=== PATIENT | female | born 1995 | race Caucasian/White ===

== ENCOUNTER 2018-05-23 18:09 | Emergency (ER) | payer SELFPAY ==
--- NOTE | 2018-05-23 18:59 | Emergency Department Report ---
ED Headache HPI - General Chief Complaint: Headache Stated Complaint: HEADACHE/DIZZY/PASSING OUT Time Seen by Provider: 05/23/18 18:39 - History of Present Illness Initial Comments: 22-year-old obese female with past medical history of hypertension, currently treated with medications, presented emergency department complaining of continued headache and nasal congestion. Patient was due to with neurology for she says that she believes is a tumor found on the CAT scan that she received on April 29.. States he is unable to get an appointment because they are not answering the phone she's been having some issues with feeling lightheaded from time to time. This, dull and throbbing headache pain and sinus pressure. CT s can was obtained on April 29, showing air-fluid level in the sphenoid sinuses. She reports no fever, sweats, chest pain, palpitations, nausea, vomiting, but has been having some presyncope Quality: mild Head Injury Location: parietal Recent Head Trauma: no recent headache/trauma, frequent headaches Associated Symptoms: nasal congestion, weakness. denies: fatigue, facial pain, flushing, loss of consciousness, nausea/vomiting, nasal drainage, rash, sinus infection, stiff neck, vision changes Allergies/Adverse Reactions: Allergies acetaminophen [From Fioricet] Adverse Reaction (Intermediate, Verified 05/13/18 17:51) Vomiting butalbital [From Fioricet] Adverse Reaction (Intermediate, Verified 05/13/18 17:51) Vomiting caffeine [From Fioricet] Adverse Reaction (Intermediate, Verified 05/13/18 17:51) Vomiting Home Medications: Ambulatory Orders hydroCHLOROthiazide [HCTZ] 25 mg PO QDAY 30 Days #30 tablet 04/29/18 amLODIPine [Norvasc] 10 mg PO DAILY #30 tab 05/04/18 Butalb/Acetaminophen/Caffeine [Fioricet 50-300-40 mg CAP] 1 cap PO Q6HR PRN #20 cap 05/23/18 ED Review of Systems ROS: Stated complaint: HEADACHE/DIZZY/PASSING OUT Other details as noted in HPI Comment: All other systems reviewed and negative Constitutional: denies: chills, fever Eyes: denies: eye pain, eye discharge, vision change ENT: denies: ear pain, throat pain Respiratory: denies: cough, shortness of breath, wheezing Cardiovascular: denies: chest pain, palpitations Endocrine: no symptoms reported Gastrointestinal: denies: abdominal pain, nausea, diarrhea Genitourinary: denies: urgency, dysuria, discharge Musculoskeletal: denies: back pain, joint swelling, arthralgia Skin: denies: rash, lesions Neurological: headache, weakness. denies: paresthesias, confusion, abnormal gait, vertigo Psychiatric: denies: anxiety, depression, auditory hallucinations, visual hallucinations, suicidal thoughts Hematological/Lymphatic: denies: easy bleeding, easy bruising ED Past Medical Hx - Past Medical History Previous Medical History?: Yes Hx Hypertension: Yes Hx Asthma: Yes - Surgical History Past Surgical History?: No - Social History Smoking Status: Never Smoker Substance Use Type: None - Medications Home Medications: Home Medications Medication Instructions Recorded Confirmed Last Taken Type hydroCHLOROthiazide [HCTZ] 25 mg PO QDAY 30 Days #30 tablet 04/29/18 05/13/18 05/13/18 Rx amLODIPine [Norvasc] 10 mg PO DAILY #30 tab 05/04/18 05/13/18 05/13/18 Rx Butalb/Acetaminophen/Caffeine 1 cap PO Q6HR PRN #20 cap 05/23/18 Unknown Rx [Fioricet 50-300-40 mg CAP] ED Physical Exam - General Limitations: No Limitations General appearance: alert, in no apparent distress - Head Head exam: Present: atraumatic, normocephalic - Eye Eye exam: Present: normal appearance, PERRL, EOMI, other (negative funduscopic examination ) Pupils: Present: normal accommodation - ENT ENT exam: Present: mucous membranes moist - Neck Neck exam: Present: normal inspection, full ROM - Respiratory Respiratory exam: Present: normal lung sounds bilaterally. Absent: respiratory distress - Cardiovascular Cardiovascular Exam: Present: regular rate, normal rhythm. Absent: systolic murmur, diastolic murmur, rubs, gallop - GI/Abdominal GI/Abdominal exam: Present: soft, normal bowel sounds. Absent: distended, tenderness, hyperactive bowel sounds, hypoactive bowel sounds - Extremities Exam Extremities exam: Present: normal inspection, full ROM, normal capillary refill. Absent: pedal edema, joint swelling - Back Exam Back exam: Present: normal inspection. Absent: CVA tenderness (R), CVA tenderness (L) - Neurological Exam Neurological exam: Present: alert, oriented X3, CN II-XII intact, normal gait, reflexes normal. Absent: abnormal gait, motor sensory deficit - Psychiatric Psychiatric exam: Present: normal affect, normal mood. Absent: anxious, flat affect - Skin Skin exam: Present: warm, dry, intact, normal color. Absent: rash, cyanosis, diaphoretic, erythema, urticaria ED Course Vital Signs 05/23/18 05/23/18 05/23/18 18:24 19:30 21:01 Temperature 98.7 F Pulse Rate 109 H 114 H 100 H Respiratory 16 15 Rate Blood Pressure 166/120 Blood Pressure 166/114 150/104 [Right] O2 Sat by Pulse 98 100 Oximetry ED Medical Decision Making - Lab Data Result diagrams: 05/23/18 19:01 05/23/18 19:01 - Medical Decision Making Discussed medication compliance and hypertension with the patient in great detail her past problems of following up with primary care provider for definitive management of her current issues. Also advised on appropriate medication use and completion. She is aware of the findings of the exam today and does state understanding. She will follow up. She also understands when to return to the emergency department. We also reviewed the CAT scan findings from April 29 in great detail of the air-fluid level that was related to her sinuses. She thought that meant that she had a tumor on her brain which also worried her and that to her early return to the emergency department. She thought it may have been going or getting worse. This discuss the role sinus plays in her symptoms and what she needs to do to control the symptoms. She has been experiencing Critical care attestation.: If time is entered above; I have spent that time in minutes in the direct care of this critically ill patient, excluding procedure time. ED Disposition Clinical Impression: Essential hypertension, Cephalgia Disposition: -01 TO HOME OR SELFCARE Is pt being admited?: No Does the pt Need Aspirin: No Condition: Stable Instructions: Hypertension (ED) Prescriptions: Butalb/Acetaminophen/Caffeine [Fioricet 50-300-40 mg CAP] 1 cap PO Q6HR PRN #20 cap PRN Reason: Headache Referrals: [facility] [Provider Group] - 3-5 Days Forms: Work/School Release Form(ED)
[2018-05-23 19:13] LABS: Basophils # (Auto) 0.1 K/mm3 (0.0-0.1); Basophils % (Auto) 0.4 % (0.0-1.8); Eosinophils % (Auto) 0.2 % (0.0-4.3); Hematocrit 39.6 % (30.3-42.9); Hemoglobin 13.5 gm/dl (10.1-14.3); Lymphocytes # (Auto) 2.1 K/mm3 (1.2-5.4); Lymphocytes % (Auto) 14.7 % (13.4-35.0); Mean Corpuscular HGB Conc 34 % (30-34); Mean Corpuscular Volume 82 fl (79-97); Monocytes # (Auto) 0.4 K/mm3 (0.0-0.8); Monocytes % (Auto) 2.5 % (0.0-7.3); Platelet Count 346 K/mm3 (140-440); Red Blood Count 4.84 M/mm3 (3.65-5.03); Red Cell Distribution Width 12.5 % (13.2-15.2)
[2018-05-23 19:23] LABS: BUN/Creatinine Ratio 14; Blood Urea Nitrogen 7 mg/dL (7-17); Hemolysis Index 17
[2018-05-23 19:46] LABS: Alanine Aminotransferase 15 units/L (7-56); Albumin 4.6 g/dL (3.9-5)
[2018-05-23 20:48] LABS: Amorphous Crystals,Urine Few; Bilirubin,Urine NEG (Negative); Blood,Urine NEG (Negative); Color,Urine Yellow (Yellow); Mucus,Urine FEW /HPF; Protein,Urine <15 mg/dL mg/dL (Negative); Urobilinogen,Urine < 2.0 mg/dL (<2.0)
[2018-05-23 21:02] VITALS: BP 150/104
== END 2018-05-23 21:06 | disposition home or self-care (01) ==
LOC: ED 18:09
DX: I10 Essential (primary) hypertension (principal); J45.909 Unspecified asthma, uncomplicated; Z88.6 Allergy status to analgesic agent; Z88.8 Allergy status to other drugs, medicaments and biological substances
CPT/HCPCS: 36415; 80053; 81001; 85025; 93005; 93010; 99283

== ENCOUNTER 2018-09-19 22:10 | Emergency (ER) | payer OTHER ==
[2018-09-19] MEDS ORDERED: CATAPRES PO ONE (22:31)
--- NOTE | 2018-09-19 22:31 | Emergency Department Report ---
Blank Doc - Documentation Documentation: This is a 22-year-old female that presents with headache and HTN. Stated has been taking her medications. This initial assessment/diagnostic orders/clinical plan/treatment(s) is/are subject to change based on patient's health status, clinical progression and re- assessment by fellow clinical providers in the ED. Further treatment and workup at subsequent clinical providers discretion. Patient/guardians urged not to elope from the ED as their condition may be serious if not clinically assessed and managed. Initial orders include: 1- Patient sent to [facility] for further evaluation and treatment 2- catapress 3- CT head 4- UA
[2018-09-19 23:20] LABS: Basophils # (Auto) 0.1 K/mm3 (0.0-0.1); Basophils % (Auto) 0.7 % (0.0-1.8); Eosinophils # (Auto) 0.5 K/mm3 (0.0-0.4); Eosinophils % (Auto) 2.8 % (0.0-4.3); Hematocrit 40.3 % (30.3-42.9); Hemoglobin 13.3 gm/dl (10.1-14.3); Lymphocytes % (Auto) 23.9 % (13.4-35.0); Mean Corpuscular HGB Conc 33 % (30-34); Mean Corpuscular Volume 82 fl (79-97); Monocytes # (Auto) 0.8 K/mm3 (0.0-0.8); Monocytes % (Auto) 4.6 % (0.0-7.3); Platelet Count 336 K/mm3 (140-440); Red Blood Count 4.89 M/mm3 (3.65-5.03); Red Cell Distribution Width 12.7 % (13.2-15.2)
[2018-09-19 23:39] LABS: Blood Urea Nitrogen 11 mg/dL (7-17); Calcium 9.6 mg/dL (8.4-10.2); Hemolysis Index 54
[2018-09-20 00:15] LABS: BUN/Creatinine Ratio 18
--- NOTE | 2018-09-20 00:19 | Cat Scan Report ---
PROCEDURE: CT HEAD/BRAIN WO CON TECHNIQUE: Routine axial imaging was obtained of the brain without IV contrast. HISTORY: headache COMPARISONS: 04/29/2018 FINDINGS: There is no evidence of acute stroke or hemorrhage. The ventricular system is appropriate in size and is symmetric. The visualized sinuses are clear. The mastoid air cells are well pneumatized. The calv arium appears intact. IMPRESSION: Within normal limits. This document is electronically signed by Conor Darnell MD., Sep 20 2018 12:17:18 AM ET
[2018-09-20 02:39] LABS: Bacteria,Urine 1+ /HPF (Negative); Bilirubin,Urine NEG (Negative); Blood,Urine LG (Negative); Color,Urine Yellow (Yellow); Mucus,Urine FEW /HPF; Protein,Urine <15 mg/dL mg/dL (Negative); Urobilinogen,Urine < 2.0 mg/dL (<2.0)
--- NOTE | 2018-09-20 02:39 | Emergency Department Report ---
ED Headache HPI - General Chief Complaint: Headache Stated Complaint: HEADACHE/HIGH BP Time Seen by Provider: 09/19/18 22:29 Source: patient Exam Limitations: no limitations - History of Present Illness Initial Comments: 22-year-old female with history of hypertension, currently on amlodipine and hydrochlorothiazide, presents to ED with headache and elevated blood pressure 1 day. Patient states she has been compliant with her medications. Reports she had a follow-up appointment 3 months and her blood pressure was controlled and normal. Patient denies any recent increase in sodium intake. Patient denies nausea, vomiting, chest pain, shortness of breath. Timing/Duration: other (1 day) Quality: moderate Associated Symptoms: other (reports associated mild dizziness and blurred vision). denies: nausea/vomiting Allergies/Adverse Reactions: Allergies No Known Allergies Allergy (Verified 09/19/18 22:16) Home Medications: Ambulatory Orders hydroCHLOROthiazide [HCTZ] 25 mg PO QDAY 30 Days #30 tablet 04/29/18 amLODIPine [Norvasc] 10 mg PO DAILY #30 tab 05/04/18 Butalb/Acetaminophen/Caffeine [Fioricet 50-300-40 mg CAP] 1 cap PO Q6HR PRN #20 cap 05/23/18 Nitrofurantoin Cecil/M-Cryst [Macrobid CAP] 100 mg PO Q12HR #14 capsule 09/20/18 ED Review of Systems ROS: Stated complaint: HEADACHE/HIGH BP Other details as noted in HPI Comment: All other systems reviewed and negative Constitutional: denies: chills, fever Eyes: vision change Respiratory: denies: shortness of breath Cardiovascular: denies: chest pain Gastrointestinal: denies: nausea, vomiting Genitourinary: frequency Neurological: headache. denies: weakness, numbness, paresthesias ED Past Medical Hx - Past Medical History Previous Medical History?: Yes Hx Hypertension: Yes Hx Asthma: Yes - Surgical History Past Surgical History?: No - Social History Smoking Status: Never Smoker Substance Use Type: None - Medications Home Medications: Home Medications Medication Instructions Recorded Confirmed Last Taken Type hydroCHLOROthiazide [HCTZ] 25 mg PO QDAY 30 Days #30 tablet 04/29/18 05/13/18 05/13/18 Rx amLODIPine [Norvasc] 10 mg PO DAILY #30 tab 05/04/18 05/13/18 05/13/18 Rx Butalb/Acetaminophen/Caffeine 1 cap PO Q6HR PRN #20 cap 05/23/18 Unknown Rx [Fioricet 50-300-40 mg CAP] Nitrofurantoin Cecil/M-Cryst 100 mg PO Q12HR #14 capsule 09/20/18 Unknown Rx [Macrobid CAP] ED Physical Exam - General Limitations: No Limitations General appearance: alert, in no apparent distress - Head Head exam: Present: atraumatic, normocephalic - Eye Eye exam: Present: normal appearance, PERRL, EOMI - ENT ENT exam: Present: mucous membranes moist - Neck Neck exam: Present: normal inspection. Absent: tenderness, meningismus - Respiratory Respiratory exam: Present: normal lung sounds bilaterally. Absent: respiratory distress - Cardiovascular Cardiovascular Exam: Present: regular rate, normal rhythm - GI/Abdominal GI/Abdominal exam: Present: soft. Absent: distended, tenderness - Extremities Exam Extremities exam: Present: normal inspection - Neurological Exam Neurological exam: Present: alert, oriented X3, CN II-XII intact. Absent: motor sensory deficit - Psychiatric Psychiatric exam: Present: normal affect, normal mood - Skin Skin exam: Present: warm, dry, intact, normal color ED Course Vital Signs 09/19/18 09/19/18 09/20/18 22:15 22:40 00:30 Temperature 98.5 F Pulse Rate 113 H 111 H 104 H Respiratory 18 24 Rate Blood Pressure 202/142 202/142 O2 Sat by Pulse 99 99 Oximetry 09/20/18 09/20/18 09/20/18 00:45 01:00 01:15 Temperature Pulse Rate 101 H 109 H 99 H Respiratory 24 20 19 Rate Blood Pressure 158/112 158/116 165/116 O2 Sat by Pulse 99 99 98 Oximetry 09/20/18 09/20/18 09/20/18 01:30 01:45 02:01 Temperature Pulse Rate 102 H Respiratory 22 Rate Blood Pressure 150/117 150/117 150/117 O2 Sat by Pulse 97 98 98 Oximetry 09/20/18 09/20/18 09/20/18 02:15 02:30 02:45 Temperature Pulse Rate 100 H 102 H 101 H Respiratory 24 21 22 Rate Blood Pressure 154/101 145/106 148/106 O2 Sat by Pulse 94 97 97 Oximetry 09/20/18 03:00 Temperature Pulse Rate 103 H Respiratory 20 Rate Blood Pressure 137/88 O2 Sat by Pulse 97 Oximetry ED Medical Decision Making - Lab Data Result diagrams: 09/19/18 22:58 09/19/18 22:58 - Radiology Data Radiology results: report reviewed, image reviewed - Medical Decision Making - SCHULTE and elevated BP x 1 day; hx of HTN, reports medication compliance - normal neuro exam, CT Head normal - clonidine given here in ED - WBCs elevated to 16, reports urinary frequency; UTI on UA;infection possible cause of SCHULTE and elevated BP - rx given for macrobid - SBP improved to 130s - d/c home, outpt f/u advised - return precautions given - Differential Diagnosis intracranial abnormality, essential HTN, UTI Critical care attestation.: If time is entered above; I have spent that time in minutes in the direct care of this critically ill patient, excluding procedure time. ED Disposition Clinical Impression: Essential hypertension, UTI (urinary tract infection) Disposition: TO HOME OR SELFCARE Is pt being admited?: No Condition: Stable Instructions: Urinary Tract Infection in Women (ED), Hypertension (ED) Prescriptions: Nitrofurantoin Cecil/M-Cryst [Macrobid CAP] 100 mg PO Q12HR #14 capsule Referrals: LAWANDA CORDERO MD [Primary Care Provider] - 3-5 Days PRIMARY CAREMD [Referring] - 3-5 Days Time of Disposition: 03:05
[2018-09-20 03:11] VITALS: BP 137/88
== END 2018-09-20 03:19 | disposition home or self-care (01) ==
LOC: ED 22:10
DX: I10 Essential (primary) hypertension (principal); N39.0 Urinary tract infection, site not specified; J45.909 Unspecified asthma, uncomplicated
CPT/HCPCS: 36415; 70450; 80048; 81001; 84703; 85025; 93005; 93010; 99284

== ENCOUNTER 2018-10-18 21:14 | Emergency (ER) | payer SELFPAY ==
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
[2018-10-18 23:41] LABS: Hematocrit 38.2 % (30.3-42.9); Hemoglobin 12.7 gm/dl (10.1-14.3); Mean Corpuscular HGB Conc 33 % (30-34); Mean Corpuscular Volume 83 fl (79-97); Platelet Count 356 K/mm3 (140-440); Red Blood Count 4.62 M/mm3 (3.65-5.03); Red Cell Distribution Width 12.9 % (13.2-15.2)
[2018-10-19 00:06] LABS: Albumin 4.1 g/dL (3.9-5); Calcium 9.4 mg/dL (8.4-10.2); Hemolysis Index 3
[2018-10-19 00:16] VITALS: BP 159/102
[2018-10-19 00:54] LABS: Alanine Aminotransferase 17 units/L (7-56); BUN/Creatinine Ratio 24; Blood Urea Nitrogen 17 mg/dL (7-17)
[2018-10-19] MEDS ORDERED: K-DUR PO ONE (01:34)
[2018-10-19] MEDS ORDERED: EMTRIVA 200 MG, VIREAD 300 MG PO STA (01:44)
[2018-10-19 01:57] LABS: HCG,Quantitative 0.555 mIU/mL (0-4); Hepatitis C Virus Antibody Non-Reactive (NonReactive)
[2018-10-19] MEDS ORDERED: VIREAD PO ONE (02:00)
[2018-10-19] MEDS ORDERED: EMTRIVA PO ONE (02:00)
[2018-10-19] MEDS ORDERED: TIVICAY PO ONE (02:27)
[2018-10-19] MEDS ORDERED: TIVICAY PO SCH (10:00)
== END 2018-10-19 03:09 | disposition home or self-care (01) ==
LOC: ED 21:14
DX: S61.230A Puncture wound without foreign body of right index finger without damage to nail, initial encounter (principal); R03.0 Elevated blood-pressure reading, without diagnosis of hypertension; I10 Essential (primary) hypertension; J45.909 Unspecified asthma, uncomplicated; X58.XXXA Exposure to other specified factors, initial encounter; Y93.89 Activity, other specified; Y92.89 Other specified places as the place of occurrence of the external cause; Y99.8 Other external cause status
CPT/HCPCS: 36415; 80053; 83690; 84702; 85027; 86592; 86705; 86706; 86803; 87806

== ENCOUNTER 2018-12-20 11:07 | Emergency (ER) | payer OTHER ==
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
[2018-12-20 11:18] VITALS: BP 179/125
[2018-12-20 12:06] LABS: HCG Qualitative,Urine Negative (Negative)
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
== END 2018-12-20 13:21 | disposition home or self-care (01) ==
LOC: ED 11:07
DX: M54.2 Cervicalgia (principal); M54.9 Dorsalgia, unspecified; I10 Essential (primary) hypertension; J45.909 Unspecified asthma, uncomplicated; Z79.899 Other long term (current) drug therapy; V49.49XA Driver injured in collision with other motor vehicles in traffic accident, initial encounter; Y93.89 Activity, other specified; Y92.410 Unspecified street and highway as the place of occurrence of the external cause; Y99.8 Other external cause status
CPT/HCPCS: 72040; 72100; 81025